=== PATIENT | female | born 1955 | race Caucasian/White ===

== ENCOUNTER 2022-04-10 03:55 | Emergency (ER) | payer MEDICAID, MEDICARE ==
[~2022-04-10] VITALS: Ht 167.6 cm; Wt 73.0 kg
[2022-04-10 04:55] LABS: BASOPHILS % 0.4 % (0.0-2.0); EOSINOPHILS % 0.4 % (0.0-5.0); HEMATOCRIT. 35.3 % (36.0-48.0); HEMOGLOBIN. 11.6 g/dL (12.0-16.0); LYMPHOCYTES % 15.4 % (20.0-50.0); MEAN CORPUSCULAR HEMOGLOBIN 31.1 pg (28.0-32.0); MEAN CORPUSCULAR VOLUME 94.3 fL (81.0-99.0); MEAN PLATELET VOLUME 7.7 fl (7.4-10.4); MONOCYTES % 4.4 % (2.0-8.0); NEUTROPHILS % 79.4 % (40.0-76.0); PLATELET 286 x1000/uL (130-400); RED BLOOD CELL COUNT 3.74 mill/uL (4.2-5.4); RED CELL DISTRIBUTION WIDTH 15.9 % (11.6-14.6)
[2022-04-10 04:58] LABS: CHLORIDE 105 mEq/L (98-107)
[2022-04-10 08:01] VITALS: BP 136/81
== END 2022-04-10 08:07 | disposition home or self-care (01) ==
LOC: ER 03:55
DX: E11.649 Type 2 diabetes mellitus with hypoglycemia without coma (principal); Z00.00 Encounter for general adult medical examination without abnormal findings; E11.9 Type 2 diabetes mellitus without complications; I10 Essential (primary) hypertension; Z88.0 Allergy status to penicillin
CPT/HCPCS: 36415; 80048; 82962; 85025; 99283

== ENCOUNTER 2023-03-03 20:04 | Emergency (ER) | payer BC, MEDICAID ==
[~2023-03-03] VITALS: Ht 157.5 cm; Wt 70.9 kg
[2023-03-03 20:19] VITALS: BP 147/43; O2SAT 99
[2023-03-03] MEDS ORDERED: SULF1TAB48 MT (23:05)
[2023-03-03] MEDS ORDERED: IBUP-2028 MT (23:10)
[2023-03-03 23:23] VITALS: PULSE 83; RESP 16; TEMP 98.2
== END 2023-03-03 23:25 | disposition home or self-care (01) ==
LOC: ER 20:04
DX: L02.214 Cutaneous abscess of groin (principal); E11.9 Type 2 diabetes mellitus without complications; I10 Essential (primary) hypertension; Z88.0 Allergy status to penicillin
CPT/HCPCS: 10060; 99283

== ENCOUNTER 2024-06-04 16:41 | Emergency (ER) | payer OTHER, MEDICAID ==
[~2024-06-04] VITALS: Ht 149.9 cm; Wt 72.6 kg
[~2024-06-04 16:41] MED LIST: IBUP-2028 MT; SULF1TAB48 MT
[2024-06-04 16:45] VITALS: O2SAT 100
[2024-06-04 17:54] LABS: HEMATOCRIT 28.7 % (36.0-48.0); HEMOGLOBIN 9.5 g/dL (12.0-16.0); MEAN CORPUSCULAR HEMOGLOBIN 30.6 pg (28.0-32.0); MEAN CORPUSCULAR HGB CONC 33.2 g/dL (31.0-37.0); PLATELET 269 x1000/uL (130-400); RED BLOOD CELL COUNT 3.12 mill/uL (4.2-5.4); RED CELL DISTRIBUTION WIDTH 13.5 % (11.6-14.6); WHITE BLOOD COUNT 6.5 x1000/uL (4.5-11.0)
[2024-06-04 17:59] LABS: CHLORIDE 107 mEq/L (98-107); POTASSIUM 4.1 mEq/L (3.5-5.1); SODIUM 139 mEq/L (136-145)
[2024-06-04 18:00] LABS: CARBON DIOXIDE 27 mEq/L (21-32)
[2024-06-04 18:01] LABS: CALCIUM 9.6 mg/dL (8.7-10.4)
[2024-06-04 18:05] LABS: CREATININE 1.1 mg/dL (0.6-1.0); GLUCOSE 211 mg/dL (70-105); UREA NITROGEN BLOOD 25 mg/dL (9-23)
[2024-06-04 18:07] LABS: TROPONIN I HIGH SENSITIVITY 6 ng/L (3.0-34)
[2024-06-04] MEDS ORDERED: ACETAMINOPHEN 325MG TABLET PO ONE (18:45)
[2024-06-04] MEDS: AMLODIPINE 10MG TABLET PO ONE (18:45)
[2024-06-04 19:14] LABS: ALANINE AMINOTRANSFERASE 22 IU/L (10-49); ALBUMIN 4.2 g/dL (3.2-4.8); ASPARTATE AMINOTRANSFERASE 23 IU/L (<34)
[2024-06-04 19:15] LABS: BILIRUBIN DIRECT 0.2 mg/dL (<=3.0); BILIRUBIN TOTAL 0.6 mg/dL (0.1-1.0); PROTEIN TOTAL 6.6 g/dL (6.0-8.3)
[2024-06-04] MEDS: AMLODIPINE 5MG TABLET PO NR (20:30)
[2024-06-04] MEDS: ACETAMINOPHEN 325MG TABLET PO NR (20:30)
[2024-06-04] MEDS ORDERED: AMLO5TAB5 MT (21:33)
[2024-06-04 21:40] VITALS: BP 170/57; PULSE 81; RESP 16; TEMP 36.94740; O2SAT 100
== END 2024-06-04 21:50 | disposition home or self-care (01) ==
LOC: ER 16:41
DX: R60.0 Localized edema (principal); I10 Essential (primary) hypertension; E11.9 Type 2 diabetes mellitus without complications; Z79.899 Other long term (current) drug therapy; Z88.0 Allergy status to penicillin; Z98.890 Other specified postprocedural states
CPT/HCPCS: 36415; 71045; 80048; 80076; 83880; 84484; 85027; 93005; 93970; 99284; 99285